=== PATIENT | male | born 1965 | race Caucasian/White ===

== ENCOUNTER 2020-08-22 01:59 | Day surgery (SDCO) | payer OTHER ==
[2020-08-22 02:15] LABS: BASOPHIL 0.3 % (0-2); EOSINOPHIL 0.1 % (0-5); HCT 42.7 % (42.0-52.0); HGB 14.3 g/dl (13.2-18.0); LYMPHOCYTE 14.8 % (15-48); MCH 29.2 pg (25.0-31.0); MCHC 33.5 g/dL (32.0-36.0); MCV 87.1 fL (78.0-100.0); MONOCYTE 3.4 % (0-12); MPV 11.2 fL (6.0-9.5); NEUTROPHIL 81.1 % (41-80); NRBC 0; PLT 179 K/uL (150-400); RDW 13.3 % (11.5-14.0)
[2020-08-22 02:24] LABS: PTT 27.9 SECONDS (22.2-34.7)
[2020-08-22 02:28] LABS: INR 1.02 (0.9-1.2); PROTHROMBIN TIME 12.7 SECONDS (11.4-13.6)
[2020-08-22 02:32] LABS: BILIRUBIN - TOTAL 0.5 mg/dL (0.2-1.0); BUN/CREAT RATIO (CALC) 21.2 RATIO; CREATININE 0.99 mg/dL (0.67-1.17); GLOBULIN (CALCULATION) 2.9 g/dL; POTASSIUM 3.8 mmol/L (3.5-5.1); TOTAL PROTEIN 6.9 g/dL (6.4-8.2)
[2020-08-22 08:40] LABS: BILIRUBIN NEGATIVE (NEGATIVE); BLOOD NEGATIVE Ery/uL (NEGATIVE); CLARITY CLEAR (CLEAR); COLOR YELLOW (YELLOW); GLUCOSE (U) TRACE mg/dL (NORMAL); LEUKOCYTES NEGATIVE Leu/uL (NEGATIVE); NITRITE NEGATIVE (NEGATIVE); PROTEIN NEGATIVE (NEGATIVE); SPECIFIC GRAVITY 1.015 (1.001-1.030); UROBILINOGEN 0.2 mg/dL (0.2-1.0)
[2020-08-22] MEDS ORDERED: ALLOPURINOL300 MG PO (11:28)
[2020-08-22] MEDS ORDERED: ALL DAY ALLERGY10 MG PO (11:28)
--- NOTE | 2020-08-22 12:36 | NUR ---
PT BROUGHT DOWN VIA BED FROM M/S TO OPS. VSS. HR 74, BP 143/83, SPO2 91%, RR 12, TEMP 99.5 TYMPANIC PT RECENTLY HAD DILAUDID ON M/S, COMING TO BEDSIDE FROM M/S TO OPS. NO S/S OF DISTRESS. RATES PAIN 2/10, STATES DILAUDID HELPED.
[2020-08-22] MEDS ORDERED: ACETAMINOPHEN500 M1 PO (15:54)
[2020-08-22] MEDS ORDERED: COLACE100 MG PO (15:54)
[2020-08-22] MEDS ORDERED: MOTRIN600 MG PO (15:54)
[2020-08-22] MEDS ORDERED: OXY-IR 5MG5 MG PO (15:54)
== END 2020-08-22 18:30 | disposition home or self-care (01) ==
LOC: FER 01:59 → FMS 09:35
PROVIDERS: Emergency Medicine; ADMIT Allergy & Immunology Allergy
DX: K80.10 Calculus of gallbladder with chronic cholecystitis without obstruction (principal); R73.03 Prediabetes; J30.2 Other seasonal allergic rhinitis; Z20.822 Contact with and (suspected) exposure to COVID-19; Z87.39 Personal history of other diseases of the musculoskeletal system and connective tissue
CPT/HCPCS: 36415; 71045; 71275; 76705; 80053; 81003; 83690; 84484; 85025; 85610; 85730; 87339; 93005; G0378; J1100; J1170; J1885; J2250; J2270; J2405; J2543; J2704; J2710; J3010; J3480; Q9967; U0002